=== PATIENT | male | born 1980 ===

== ENCOUNTER 2017-02-01 23:20 | Emergency (ER) | payer OTHER ==
[2017-02-02 00:04] VITALS: BP 133/76; PULSE 72; RESP 14; TEMP 98.2; O2SAT 99
--- NOTE | 2017-02-02 00:48 | ED PDOC ---
HPI: Back Time Seen by Provider: 02/02/17 00:29 Chief Complaint (Nursing): Back Pain Chief Complaint (Provider): low back pain History Per: Patient History/Exam Limitations: no limitations Onset/Duration Of Symptoms: Days (1 week) Current Symptoms Are (Timing): Still Present Quality Of Discomfort: "Pain" Exacerbating Factor(s): Turning, Movement, Sitting, Standing Additional History Per: Patient Additional Complaint(s): 36 y/o male presents with atraumatic low back pain x 1 week. Pain worsened by positional change, no improvement with OTC meds (last taken 3 days ago). Denies fever, nausea/vomiting, abdominal pain, dysuria, hematuria, bowel/bladder incontinence, numbness/weakness lower extremities. Past Medical History Reviewed: Historical Data, Nursing Documentation, Vital Signs Vital Signs: Last Vital Signs Temp 98.2 F 02/02/17 00:01 Pulse 72 02/02/17 00:01 Resp 14 02/02/17 00:01 BP 133/76 02/02/17 00:01 Pulse Ox 99 02/02/17 00:01 - Medical History PMH: No Chronic Diseases - Surgical History Surgical History: No Surg Hx - Family History Family History: States: Unknown Family Hx - Living Arrangements Living Arrangements: With Family - Home Medications Home Medications: Ambulatory Orders Medication Instructions Recorded Cyclobenzaprine [Cyclobenzaprine 10 mg PO BID PRN #10 tab 02/02/17 HCl] Naproxen [Naprosyn] 500 mg PO Q12 PRN #20 tablet 02/02/17 - Allergies Allergies/Adverse Reactions: Allergies Allergy/AdvReac Type Severity Reaction Status Date / Time No Known Allergies Allergy Verified 02/02/17 00:01 Review of Systems ROS Statement: Except As Marked, All Systems Reviewed And Found Negative Musculoskeletal: Positive for: Back Pain Physical Exam - Reviewed Nursing Documentation Reviewed: Yes Vital Signs Reviewed: Yes - Physical Exam Appears: Positive for: Well, Non-toxic, No Acute Distress Head Exam: Positive for: ATRAUMATIC, NORMAL INSPECTION, NORMOCEPHALIC Skin: Positive for: Normal Color Eye Exam: Positive for: Normal appearance ENT: Positive for: Normal ENT Inspection Cardiovascular/Chest: Positive for: Regular Rate, Rhythm Respiratory: Positive for: Normal Breath Sounds Gastrointestinal/Abdominal: Positive for: Normal Exam Back: Positive for: Vertebral Tenderness (lower lspine; no bony deformity noted) , Muscle Spasm (b/l lspine paraspinals) Extremity: Positive for: Normal ROM Neurologic/Psych: Positive for: Alert, Oriented. Negative for: Motor/Sensory Deficits - ECG O2 Sat by Pulse Oximetry: 99 - Other Rad ls xray X-Ray: Viewed By Me X-Ray Interpretation: no acute findings - Progress ED Course And Treament: toradol IM, flexeril PO, xray Patient educated on findings, discharged with rx Naproxen, Flexeril. Advised follow up PMD 2-3 days. Warm compresses. Return to ED for worsening/concerning symptoms. Disposition - Clinical Impression Clinical Impression: Low back pain - Patient ED Disposition Is Patient to be Admitted: No Counseled Patient/Family Regarding: Studies Performed, Diagnosis, Need For Followup, Rx Given - Disposition Referrals: [facility] [Outside] Disposition: Routine/Home Disposition Time: 02:16 Condition: IMPROVED Prescriptions: Cyclobenzaprine [Cyclobenzaprine HCl] 10 mg PO BID PRN #10 tab PRN Reason: Muscle Spasm Naproxen [Naprosyn] 500 mg PO Q12 PRN #20 tablet PRN Reason: Pain, Moderate (4-7) Instructions: Acute Low Back Pain (ED)
--- NOTE | 2017-02-02 09:18 | RAD ---
PROCEDURE: Radiographs of the Lumbar Spine. HISTORY: low back pain No antecedent history of trauma provided. COMPARISON: No prior. FINDINGS: BONES: Normal alignment. No listhesis. No fracture. DISC SPACES: Unremarkable. OTHER FINDINGS: None. IMPRESSION: Unremarkable radiographs of the lumbar spine.
== END 2017-02-02 03:00 | disposition home or self-care (01) ==
LOC: H.ER 23:20
DX: M54.5 Low back pain (principal)